=== PATIENT | female | born 2000 | race Caucasian/White ===

== ENCOUNTER 2021-04-08 15:22 | Emergency (ER) | payer OTHER | END 2021-04-08 16:21 | disposition left against medical advice (07) | LOC: ER1 15:22 | DX: R11.0 Nausea (principal); Z53.21 Procedure and treatment not carried out due to patient leaving prior to being seen by health care provider | CPT/HCPCS: 81001; 84703 ==

== ENCOUNTER 2022-06-06 22:51 | Emergency (ER) | payer OTHER ==
[2022-06-07 00:02] LABS: HEMOGLOBIN 12.5 gm/dl (12.3-15.3); RED BLOOD COUNT 4.29 M/UL (4.00-5.10); WHITE BLOOD COUNT 9.2 K/UL (4.5-11.0)
[2022-06-07 00:29] LABS: BUN/CREATININE RATIO 11 (0-10)
[2022-06-07] MEDS ORDERED: OMNICEF 300 MG300 MG PO (03:16)
== END 2022-06-07 03:40 | disposition home or self-care (01) ==
LOC: ER1 22:51
PROVIDERS: Physician Assistant
DX: R07.9 Chest pain, unspecified (principal); N39.0 Urinary tract infection, site not specified; Z91.040 Latex allergy status
CPT/HCPCS: 71045; 80053; 81001; 82550; 82553; 83690; 84484; 84703; 85025; 87077; 87086; 87186; 93005; 96374; 99285; Q9967